=== PATIENT | male | born 1980 | race Caucasian/White ===

== ENCOUNTER 2018-11-27 18:56 | Emergency (ER) | payer BC, OTHER ==
[~2018-11-27] VITALS: Ht 200.7 cm; Wt 108.0 kg
[2018-11-27 19:00] VITALS: Ht 200.7 cm; Wt 108.0 kg
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
[2018-11-27] MEDS ORDERED: ARIP15TA7 PO (23:28)
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
[2018-11-28 12:09] VITALS: BP 145/78; PULSE 70; RESP 18
== END 2018-11-28 12:18 ==
LOC: E/R 18:56
DX: R45.851 Suicidal ideations (principal); D64.9 Anemia, unspecified; D72.819 Decreased white blood cell count, unspecified
CPT/HCPCS: 36415; 80053; 80307; 81003; 85025